=== PATIENT | female | born 1980 | race Caucasian/White ===

== ENCOUNTER 2018-05-25 18:23 | Emergency (ER) | payer OTHER ==
[2018-05-25 18:32] VITALS: BP 143/91
--- NOTE | 2018-05-25 19:43 | RADIOLOGY REPORT (SQ) ---
EXAM DESCRIPTION: HAND RIGHT 3 VIEWS COMPLETED DATE/TIME: 05/25/2018 7:35 pm REASON FOR STUDY: lac COMPARISON: None. EXAM PARAMETERS: NUMBER OF VIEWS: Three views. TECHNIQUE: AP, lateral and oblique radiographic images acquired of the right hand. LIMITATIONS: None. FINDINGS: MINERALIZATION: Normal. BONES: No acute fracture or dislocation. No worrisome bone lesions. JOINTS: No effusions. SOFT TISSUES: No soft tissue swelling. No foreign body. OTHER: No other significant finding. IMPRESSION: NEGATIVE STUDY OF THE RIGHT HAND. NO RADIOGRAPHIC EVIDENCE OF ACUTE INJURY. TECHNICAL DOCUMENTATION: JOB ID: [id number] [employer]- All Rights Reserved Reading location - IP/workstation name: [email or web address]
[2018-05-25] MEDS ORDERED: LIDOCAINE 1% INJ-PF (10 MG/ML) 30 ML SDV INJ ONE (20:00)
[2018-05-25] MEDS ORDERED: CEPHALEXIN 500 MG CAPSULE PO ONE (20:01)
--- NOTE | 2018-05-25 20:06 | ER Document Report ---
HPI - HPI Pain Level: 3 Notes: Patient is a 37-year-old female no significant past medical history who presents to the ED complaining of a laceration to her right anterolateral hand by a brand-new clean knife prior to arrival. Patient states that this was accidental. Pain does not radiate. Patient states that she still able to move her head with and fingers without any difficulties. Reports that her tetanus is up-to-date within the last 5 years. She does have an 'allergy' to Augmentin which caused GI upset. No other concerns or complaints. Denies any headache, fever, URI, sore throat, chest pain, palpitations, syncope, cough, shortness of breath, wheeze, dyspnea, abdominal pain, nausea/vomiting/diarrhea, urinary retention, dysuria, hematuria, numbness/tingling, muscle paralysis/weakness, or rash. - ROS Systems Reviewed and Negative: Yes All other systems reviewed and negative Past Medical History - Social History Smoking Status: Unknown if Ever Smoked Family History: Reviewed & Not Pertinent Vertical Provider Document - CONSTITUTIONAL Agree With Documented VS: Yes Notes: PHYSICAL EXAMINATION: GENERAL: Well-appearing, well-nourished and in no acute distress. LUNGS: Breath sounds clear to auscultation bilaterally and equal. No wheezes rales or rhonchi. HEART: Regular rate and rhythm without murmurs, rubs, gallops. Musculoskeletal: Rt hand/fingers: FROM to passive/active. Strength 5+/5. N/V intact. No bony tenderness. Extremities: No cyanosis, clubbing, or edema b/l. Peripheral pulses 2+. Capillary refill less than 3 seconds. NEUROLOGICAL: Normal speech, normal gait. PSYCH: Normal mood, normal affect. SKIN:Rt lateral hand b/w 1st and 2nd digit: there is a 2.2cm irregular superficial laceration noted. Course - Re-evaluation Re-evalutation: 05/25/18 20:33 Patient is a 37-year-old female patient is an afebrile, well-hydrated, 37-year- old female who presents to the ED with a hand laceration. Vitals are acceptable. PE is otherwise unremarkable for any neurovascular compromise, obvious tendon/ligament rupture, obvious fracture/dislocation, septic joint. Tetanus is reported to be up-to-date. X-ray was unremarkable for any acute pathology. Wound was thoroughly irrigated and cleansed. Wound edges were approximated appropriately utilizing 4 simple interrupted sutures. Wound dressing was placed and wound instructions reviewed. No other labs or imaging warranted at this time based on H&P. I will be sending her home with a prescription for Keflex. Conservative measures otherwise for symptoms. Sutures will need removed in about 10 days. Recheck with your PCM in 2-3 days. Consider consult orthopedics. Return to the ED with any worsening/concerning symptoms otherwise as reviewed in discharge. Patient is in agreement. - Vital Signs Vital signs: Temp Pulse Resp BP Pulse Ox 98 F 96 18 143/91 H 100 05/25/18 18:30 05/25/18 18:30 05/25/18 18:30 05/25/18 18:30 05/25/18 18:30 Procedures - Laceration/Wound Repair Right Hand Time completed: 20:35 Wound length (cm): 2.2 Wound's Depth, Shape: Superficial, Irregular Laceration pre-procedure: Sterile PPE donned, Sterile drapes applied, Other - Chlorhexidine/saline Anesthetic type: 1% Lidocaine Volume Anesthetic (mLs): 6 Wound explored: Clean, No foreign body removed Irrigated w/ Saline (mLs): 120 Wound Debrided: Minimal Wound Repaired With: Sutures Suture Size/Type: 4:0, Nylon Number of Sutures: 4 Layer Closure?: No Post-procedure wound care: Sterile dressing applied Post-procedure NV exam normal: Yes Complications: No Discharge - Discharge Clinical Impression: Hand laceration Qualifiers: Encounter type: initial encounter Foreign body presence: without foreign body Laterality: right Qualified Code(s): S61.411A - Laceration without foreign body of right hand, initial encounter Condition: Stable Disposition: HOME, SELF-CARE Instructions: Antibiotic Ointment Protection ([facility]), Laceration Care ([facility]), Prophylactic Antibiotic ([facility]), Soap Cleansing ([facility]) Additional Instructions: Do not shower or bathe for 24 hours. After 24 hours you may shower but no submersion of the wound under water. Keep the original dressing on the wound for 24 hours unless the drainage soaks through. Change the dressing daily thereafter and keep the knots of the suture material clean from any dried discharge. You may leave the wound open to the air once there is no more discharge. See your PCM in 2-3 days for a recheck. Monitor for any signs of worsening pain or redness, purulent drainage, streaks, and/or fever. Return to the ED if noticing any of the above symptoms or as needed. Take medications as directed. Your sutures will need to be removed in 10 days. Prescriptions: Cephalexin Monohydrate [Keflex 500 mg Capsule] 500 mg PO TID #30 capsule Forms: Elevated Blood Pressure Referrals: [facility] ([facility]) [Provider Group] - Follow up as needed
[2018-05-25] MEDS ORDERED: HYDROCODONE/ACETAMINOPHEN 5-325 MG TABLET PO ONE (20:33)
== END 2018-05-25 20:50 | disposition home or self-care (01) ==
LOC: ER 18:23
DX: S61.411A Laceration without foreign body of right hand, initial encounter (principal); W26.0XXA Contact with knife, initial encounter; Z88.0 Allergy status to penicillin
CPT/HCPCS: 99283; 73130; 12001; J3490